=== PATIENT | female | born 1985 | race Caucasian/White ===

== ENCOUNTER 2017-02-01 20:42 | Emergency (ER) | payer MEDICAID, OTHER ==
[2017-02-01] MEDS ORDERED: HYDROmorphone 1 MG/ML Syringe IVPUSH ONE (21:16)
[2017-02-01] MEDS ORDERED: Ondansetron 4 MG/2 ML SDV IVPUSH ONE (21:16)
[2017-02-01 21:28] VITALS: BP 143/74
[2017-02-01] MEDS ORDERED: Sodium Chloride 0.9% 1,000 ML IV SCH (21:30)
[2017-02-01] MEDS ORDERED: Ketorolac 30 MG/ML SDV IVPUSH ONE (22:46)
[2017-02-01] MEDS ORDERED: LORazepam 2 MG/ML MDV IVPUSH ONE (22:46)
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
--- NOTE | 2017-02-02 10:13 | CR ---
Chest 2V FINDINGS: The heart and vascular structures are normal in appearance. No infiltrates or effusions are demonstrated. The skeletal structures are unremarkable. IMPRESSION: Negative exam.
== END 2017-02-02 00:36 | disposition home or self-care (01) ==
LOC: JP.ED 20:42
DX: R07.89 Other chest pain (principal); M25.511 Pain in right shoulder; Z91.040 Latex allergy status
CPT/HCPCS: 36415; 71020; 80053; 80305; 81001; 81025; 84484; 85025; 96361; 96374; 96375; 99285; J1170; J1885; J2060; J2405; J7040; 93005

== ENCOUNTER 2021-08-30 13:04 | Inpatient (IN) | payer MEDICAID ==
[2021-08-30] MEDS ORDERED: Albuterol 8 GM Inhaler INH PRN (15:22)
[2021-08-30] MEDS ORDERED: Albuterol/Ipratropium 3.0-0.5 MG/3 ML Neb Soln NEB SCH (15:30)
[2021-08-30 16:55] LABS: CORONAVIRUS COVID-19 NAA POSITIVE (NEGATIVE)
[2021-08-30] MEDS ORDERED: Sodium Chloride 0.9% 1,000 ML IV ONE (17:05)
[2021-08-30] MEDS: Enoxaparin 30 MG/0.3 ML Syringe SUBCUT SCH (17:31)
[2021-08-30] MEDS ORDERED: Acetaminophen 325 MG Tab PO PRN (20:41)
[2021-08-30] MEDS ORDERED: SENNOSIDES 17.2 MG PO SCH (20:45)
[2021-08-30] MEDS: buPROPion 150 MG Tab.ER PO SCH (21:35)
[2021-08-30] MEDS: Calcium Carbonate/Vitamin D3 1500 MG-400 Units Tab PO SCH (21:35)
[2021-08-30] MEDS: hydrOXYzine HCl 25 MG Tab PO SCH (21:35)
[2021-08-30] MEDS: busPIRone 10 MG Tab PO SCH (21:36)
[2021-08-30] MEDS ORDERED: Prazosin 1 MG Cap PO ONE (22:00)
[2021-08-31] MEDS ORDERED: Acetaminophen 325 MG Tab PO PRN (07:19)
[2021-08-31] MEDS: LORazepam 2 MG/ML SDV IVPUSH PRN ×3 (08:52→21:07)
[2021-08-31] MEDS ORDERED: DISULFIRAM 250 MG PO SCH (09:00)
[2021-08-31] MEDS: Cholecalciferol (Vitamin D3) 25 MCG Tab PO SCH (09:30)
[2021-08-31] MEDS: Cyanocobalamin (Vitamin B12) 1,000 MCG Tab PO SCH (09:30)
[2021-08-31] MEDS: lamoTRIgine 100 MG Tab PO SCH (09:30)
[2021-08-31] MEDS: Dexamethasone 2 MG Tab PO SCH (09:31)
[2021-08-31] MEDS: Prazosin 1 MG Cap PO SCH ×2 (09:31→12:03)
[2021-08-31] MEDS: busPIRone 10 MG Tab PO SCH ×3 (09:31→20:46)
[2021-08-31] MEDS: Naltrexone 50 MG Tab PO SCH (09:31)
[2021-08-31] MEDS: Calcium Carbonate/Vitamin D3 1500 MG-400 Units Tab PO SCH ×2 (09:31→20:46)
[2021-08-31] MEDS: Ferrous Sulfate 325 MG Tab PO SCH (09:31)
[2021-08-31] MEDS: Docusate Sodium 100 MG Cap PO SCH (09:31)
[2021-08-31] MEDS: hydrOXYzine HCl 25 MG Tab PO SCH ×3 (09:31→20:46)
[2021-08-31] MEDS: Enoxaparin 30 MG/0.3 ML Syringe SUBCUT SCH (17:06)
[2021-08-31] MEDS: buPROPion 150 MG Tab.ER PO SCH (20:46)
[2021-08-31] MEDS ORDERED: Prazosin 1 MG Cap PO SCH (21:00)
[2021-09-01] MEDS: hydrOXYzine HCl 25 MG Tab PO SCH ×3 (09:17→21:41)
[2021-09-01] MEDS: Calcium Carbonate/Vitamin D3 1500 MG-400 Units Tab PO SCH ×2 (09:18→21:41)
[2021-09-01] MEDS: busPIRone 10 MG Tab PO SCH ×3 (09:18→21:41)
[2021-09-01] MEDS: Dexamethasone 2 MG Tab PO SCH (09:18)
[2021-09-01] MEDS: Docusate Sodium 100 MG Cap PO SCH (09:18)
[2021-09-01] MEDS: lamoTRIgine 100 MG Tab PO SCH (09:19)
[2021-09-01] MEDS: Ferrous Sulfate 325 MG Tab PO SCH (09:19)
[2021-09-01] MEDS: Prazosin 1 MG Cap PO SCH ×2 (09:20→13:05)
[2021-09-01] MEDS: Cholecalciferol (Vitamin D3) 25 MCG Tab PO SCH (09:21)
[2021-09-01] MEDS: Naltrexone 50 MG Tab PO SCH (09:22)
[2021-09-01] MEDS: Cyanocobalamin (Vitamin B12) 1,000 MCG Tab PO SCH (09:22)
[2021-09-01] MEDS: LORazepam 2 MG/ML SDV IVPUSH PRN ×2 (09:52→21:45)
[2021-09-01 15:11] LABS: HBSAG SCREEN Negative (Negative); HCV AB 0.1 s/co ratio (0.0-0.9); HEP A AB, IGM Negative (Negative); HEP B CORE AB, IGM Negative (Negative)
[2021-09-01] MEDS: Enoxaparin 40 MG/0.4 ML Syringe SUBCUT SCH (16:50)
[2021-09-01] MEDS: buPROPion 150 MG Tab.ER PO SCH (21:41)
[2021-09-02] MEDS: lamoTRIgine 100 MG Tab PO SCH (08:49)
[2021-09-02] MEDS: busPIRone 10 MG Tab PO SCH ×3 (08:50→21:23)
[2021-09-02] MEDS: Docusate Sodium 100 MG Cap PO SCH (08:51)
[2021-09-02] MEDS: Cyanocobalamin (Vitamin B12) 1,000 MCG Tab PO SCH (08:52)
[2021-09-02] MEDS: Naltrexone 50 MG Tab PO SCH (08:52)
[2021-09-02] MEDS: Calcium Carbonate/Vitamin D3 1500 MG-400 Units Tab PO SCH ×2 (08:53→21:23)
[2021-09-02] MEDS: Cholecalciferol (Vitamin D3) 25 MCG Tab PO SCH (08:53)
[2021-09-02] MEDS: hydrOXYzine HCl 25 MG Tab PO SCH ×3 (08:56→21:23)
[2021-09-02] MEDS: Ferrous Sulfate 325 MG Tab PO SCH (08:58)
[2021-09-02] MEDS: LORazepam 2 MG/ML SDV IVPUSH PRN ×2 (11:41→21:30)
[2021-09-02] MEDS: Enoxaparin 40 MG/0.4 ML Syringe SUBCUT SCH (17:55)
[2021-09-02] MEDS: buPROPion 150 MG Tab.ER PO SCH (21:23)
[2021-09-03] MEDS: hydrOXYzine HCl 25 MG Tab PO SCH ×2 (08:57→15:00)
[2021-09-03] MEDS: Cyanocobalamin (Vitamin B12) 1,000 MCG Tab PO SCH (08:57)
[2021-09-03] MEDS: Calcium Carbonate/Vitamin D3 1500 MG-400 Units Tab PO SCH (08:57)
[2021-09-03] MEDS: Naltrexone 50 MG Tab PO SCH (08:58)
[2021-09-03] MEDS: Docusate Sodium 100 MG Cap PO SCH (08:58)
[2021-09-03] MEDS: busPIRone 10 MG Tab PO SCH ×2 (09:00→15:00)
[2021-09-03] MEDS ORDERED: lamoTRIgine 100 MG, lamoTRIgine 50 MG PO SCH ×2 (09:00)
[2021-09-03] MEDS: Ferrous Sulfate 325 MG Tab PO SCH (09:00)
[2021-09-03] MEDS: Cholecalciferol (Vitamin D3) 25 MCG Tab PO SCH (09:02)
[2021-09-03] MEDS: LORazepam 2 MG/ML SDV IVPUSH PRN (10:48)
[2021-09-03 17:39] VITALS: BP 144/85; PULSE 68
== END 2021-09-03 17:07 | disposition home or self-care (01) | DRG 441 ==
LOC: JP.ICU 13:04
PROVIDERS: ADMIT Internal Medicine; ATTEND Hospitalist
PROC: 3E0DX3Z Introduction of Anti-inflammatory into Mouth and Pharynx, External Approach (ICD-10-PCS; principal; 2021-08-30)
PROC: 8E0ZXY6 Isolation (ICD-10-PCS; 2021-08-30)
DX: K71.6 Toxic liver disease with hepatitis, not elsewhere classified (principal); U07.1 COVID-19; N17.9 Acute kidney failure, unspecified; J00 Acute nasopharyngitis [common cold]; E11.9 Type 2 diabetes mellitus without complications; F43.10 Post-traumatic stress disorder, unspecified; F41.9 Anxiety disorder, unspecified; F32.A Depression, unspecified; G43.909 Migraine, unspecified, not intractable, without status migrainosus; Z90.49 Acquired absence of other specified parts of digestive tract; Z87.891 Personal history of nicotine dependence
CPT/HCPCS: 0241U; 36415; 36600; 76770; 76770-26; 80048; 80053; 80074; 80076; 81001; 82803; 83605; 85025; 87040; 93971-RT; 97110-GP; 97162-GP; 97530-GP; 97535-GP; A9270-GY; J1650; J2060; J7030; J8540

== ENCOUNTER → 2022-01-10 | Emergency (ER) | payer MEDICAID ==
[2012-12-10 12:55] VITALS: BP 197/70
== END ==
LOC: JP.ED 13:48
DX: S92.912A Unspecified fracture of left toe(s), initial encounter for closed fracture (principal); J06.9 Acute upper respiratory infection, unspecified; Z20.822 Contact with and (suspected) exposure to COVID-19; W18.40XA Slipping, tripping and stumbling without falling, unspecified, initial encounter
CPT/HCPCS: 73630-26-LT; 73630-LT; 87081; 87880-QW; 99283; U0002

== ENCOUNTER 2022-04-25 10:16 | Emergency (ER) | payer MEDICAID ==
[2022-04-25] MEDS ORDERED: Lactated Ringers 1,000 ML IV ONE (11:10)
[2022-04-25] MEDS ORDERED: Sodium Chloride 0.9% 10 ML Syringe FLUSH PRN (11:10)
[2022-04-25 11:55] LABS: ESTIMATED GFR 97 mL/min (>60)
[2022-04-25] MEDS ORDERED: Sodium Chloride 0.9% 1,000 ML IV ONE (12:15)
[2022-04-25] MEDS ORDERED: Potassium Chloride 20 MEQ Tab.ER PO ONE (12:15)
[2022-04-25] MEDS ORDERED: Piperacillin/Tazobactam 3.375 GM in Sodium Chloride 0.9% 50 ML IV SCH (12:30)
[2022-04-25] MEDS ORDERED: Ondansetron 4 MG/2 ML SDV IVPUSH ONE (12:57)
[2022-04-25] MEDS ORDERED: Magnesium Sulfate/Water 2 GM in Premix Bag 1 BAG IV ONE (13:38)
[2022-04-25 15:37] VITALS: BP 111/69; PULSE 81
== END 2022-04-25 16:30 | disposition home or self-care (01) ==
LOC: JP.ED 10:16
DX: K52.9 Noninfective gastroenteritis and colitis, unspecified (principal); E86.0 Dehydration; E83.42 Hypomagnesemia; Z87.891 Personal history of nicotine dependence; Z91.040 Latex allergy status; Z91.030 Bee allergy status; Z88.8 Allergy status to other drugs, medicaments and biological substances; Z79.899 Other long term (current) drug therapy
CPT/HCPCS: 36415; 80053; 82803; 83605; 83690; 83735; 85025; 85651; 86140; 87040; 96361; 96365; 96367; 96375; 99284; A9270; J2405; J2543; J3475; J3490; J7030; J7120

== ENCOUNTER 2022-05-03 08:18 | Day surgery (SDC) | payer MEDICAID ==
[2022-05-03] MEDS ORDERED: Sodium Chloride 0.9% 1,000 ML IV SCH (09:00)
[2022-05-03] MEDS ORDERED: Midazolam 1 MG/ML 2 ML SDV ONE (10:22)
[2022-05-03] MEDS ORDERED: Propofol 200 MG/20 ML SDV ONE ×2 (10:22→11:10)
[2022-05-03] MEDS ORDERED: fentaNYL 100 MCG/2 ML SDV ONE (10:22)
[2022-05-03 12:22] VITALS: BP 128/57; PULSE 55
== END 2022-05-03 12:24 | disposition home or self-care (01) ==
LOC: JP.SDS 08:18
PROVIDERS: ATTEND Internal Medicine
DX: R19.7 Diarrhea, unspecified (principal); R10.9 Unspecified abdominal pain; R63.4 Abnormal weight loss; F32.A Depression, unspecified; I10 Essential (primary) hypertension; Z68.26 Body mass index [BMI] 26.0-26.9, adult; Z91.040 Latex allergy status; Z91.030 Bee allergy status; Z88.8 Allergy status to other drugs, medicaments and biological substances
CPT/HCPCS: 81025; J2250; J2704; J3010; J7030

== ENCOUNTER 2023-12-10 16:17 | Emergency (ER) | payer MEDICAID ==
[2023-12-10 16:24] VITALS: BP 146/83; PULSE 86
[2023-12-10 17:35] LABS: APPEARANCE,URINE CLEAR (CLEAR); BILIRUBIN,URINE NEGATIVE (NEGATIVE); COLOR,URINE YELLOW (YELLOW); GLUCOSE,URINE NEGATIVE (NEGATIVE); KETONES,URINE NEGATIVE (NEGATIVE); LEUKOCYTE ESTERASE,URINE TRACE (NEGATIVE); NITRITE,URINE NEGATIVE (NEGATIVE); OCCULT BLOOD,URINE NEGATIVE (NEGATIVE); PH,URINE 6.5 (5.0-8.0); PROTEIN,URINE NEGATIVE (NEGATIVE); UROBILINOGEN,URINE 0.2 EU/dL (0.2-1.0)
[2023-12-10 17:42] LABS: AMORPHOUS SEDIMENT,URINE NOT SEEN; BACTERIA,URINE NOT SEEN; EPITHELIAL CELLS,URINE RARE; MUCUS,URINE NOT SEEN; RBC,URINE 0-5 (0-5); WBC,URINE 0-5 (0-5)
== END 2023-12-10 18:26 | disposition home or self-care (01) ==
LOC: JP.ED 16:17
DX: S30.814A Abrasion of vagina and vulva, initial encounter (principal); N39.0 Urinary tract infection, site not specified; Z86.16 Personal history of COVID-19; Z90.49 Acquired absence of other specified parts of digestive tract; Z91.030 Bee allergy status; Z91.040 Latex allergy status; Z88.8 Allergy status to other drugs, medicaments and biological substances; Z79.899 Other long term (current) drug therapy; X58.XXXA Exposure to other specified factors, initial encounter
CPT/HCPCS: 81001; 87086; 99283